=== PATIENT | male | born 1995 | race Two or more races ===

== ENCOUNTER 2025-02-13 12:14 | Emergency (ER) | payer BC ==
[2025-02-13 15:18] LABS: #Basophils Less than 0.03 10x3/uL (0.0-0.2); #Eosinophils 0.56 10x3/uL (0.0-0.5); #Monocytes 0.55 10x3/uL (0.0-1.1); #Neutrophils 3.81 10x3/uL (1.5-8.4); %Basophils 0.3 % (0.0-2.0); %Eosinophils 7.9 % (0.0-6.0); %Lymphocytes 30.5 % (18.0-47.0); %Monocytes 7.7 % (0.0-10.0); %Neutrophils 53.5 % (40.0-75.0); Hematocrit 38.8 % (38.8-50.0); Hemoglobin 12.8 g/dL (13.5-17.5); Mean Corpuscular Hemoglobin 29.8 pg (27.0-33.0); Mean Corpuscular Volume 90.2 fL (81.2-95.1); Platelet Count 212 10x3/uL (150-450); Red Blood Cell (RBC) Count 4.30 10x6/uL (4.32-5.72); White Blood Cell (WBC) Count 7.12 10x3/uL (3.5-10.5)
[2025-02-13 15:36] LABS: ALT (SGPT) 15 U/L (Less than 45); AST (SGOT) 21 U/L (11-34); Albumin 4.4 g/dL (3.1-4.5); Alkaline Phosphatase 93 U/L (40-110); Anion Gap 12 mmol/L (10-20); BUN (Urea Nitrogen) 9 mg/dL (8.9-20.6); Bilirubin, Total 0.7 mg/dL (0.3-1.2); Calc. Creatinine Clearance 0 mL/min (70-130); Calcium 9.5 mg/dL (7.8-10.44); Carbon Dioxide 27 mmol/L (22-29); Chloride 104 mmol/L (98-107); Globulin 3.2 g/dL (2.4-3.5); Glucose 87 mg/dL (70-105); Magnesium 2.0 mg/dL (1.6-2.6); Potassium 3.7 mmol/L (3.5-5.1); Sodium 139 mmol/L (136-145)
== END 2025-02-13 16:15 | disposition home or self-care (01) ==
LOC: CSHERS 12:14
DX: R19.7 Diarrhea, unspecified (principal); Z55.6 Problems related to health literacy
CPT/HCPCS: 71046; 80053; 83735; 85025; 99284